=== PATIENT | female | born 1970 | race Caucasian/White ===

== ENCOUNTER 2019-10-04 09:50 | Outpatient (CLI) | payer BC, SELFPAY ==
--- NOTE | 2019-10-04 10:00 | MM_ITS ---
WS: [id number] BILATERAL SCREENING DIGITAL MAMMOGRAM WITH CAD HISTORY: screening COMPARISON: 04/20/2007 Bilateral CC and MLO views submitted. Computer aided detection analyzed. Breast composition: There are scattered areas of fibroglandular density. No suspicious masses, microc alcifications or architectural distortion. Benign calcifications upper outer quadrant LEFT breast. MM/[place] [id number] IMPRESSION: BI-RADS: 2-Benign FOLLOW UP: 1 Year Follow-up
== END 2019-10-04 09:51 | disposition home or self-care (01) ==
LOC: RADSHAW 09:53
PROVIDERS: Family Provider Family Medicine; PCP Nurse Practitioner Family; Visit Provider Nurse Practitioner Women's Health
DX: Z12.31 Encounter for screening mammogram for malignant neoplasm of breast (principal)
CPT/HCPCS: 77067

== ENCOUNTER → 2020-06-24 15:44 | Outpatient (BNVA) | payer BC, SELFPAY | PROVIDERS: Family Provider Family Medicine; PCP Nurse Practitioner Family; Referring Provider Family Medicine; Visit Provider Podiatrist Foot & Ankle Surgery | DX: G57.92 Unspecified mononeuropathy of left lower limb (principal) | CPT/HCPCS: 73630 ==

== ENCOUNTER 2020-07-01 07:54 | Outpatient (CLI) | payer BC, SELFPAY ==
--- NOTE | 2020-07-01 08:09 | CT_ITS ---
WS: [id number] CT NECK TECHNIQUE: Contrast-enhanced CT of the neck with coronal and sagittal reformatted images. CLINICAL INFORMATION: DYSPHAGIA COMPARISON: None. DLP: 2588.[address] scans at [facility] use at least one of these dose optimization techniques: automat ed exposure control; mA and/or kV adjustment per patient size (includes targeted exams where dose is matched to clinical indication); or iterative reconstruction. FINDINGS: Parotid glands are normal. Submandibular glands are normal. Tongue base is normal. Normal parapharyng eal fat. No evidence of supraglottic or glottic mass. Normal vallecula and piriform sinuses. Subglott ic airway is normal. Heterogeneous thyroid gland with small bilateral thyroid nodules. Lung apices are well aerated. Mastoid air cells are well aerated. Partial opacification left maxillar y sinus appears chronic. Partially visualized intracranial contents unremarkable. A few prominent cer vical lymph nodes more prominent in the posterior triangle and lower neck nonspecific but likely reac tive. Mild spondylitic changes. Disc space narrowing worse at C6-7. CT/CT neck w con* [id number] IMPRESSION: 1. No evidence of supraglottic or glottic mass. Normal tongue base and parapha ryngeal fat 2. Normal salivary glands. 3. A few prominent cervical lymph nodes nonspecific but likely reactive. 4. Heterogeneous thyroid with small nodules. This can be further evaluated wit h ultrasound. 5. Chronic appearing opacification left maxillary sinus.
--- NOTE | 2020-07-01 08:09 | FL_ITS ---
WS: [id number] ESOPHAGRAM TECHNIQUE: Double contrast examination was performed with thin and thick barium. Upright and MCCORMICK imag es were obtained. Fluoroscopy time 3.2 minutes CLINICAL INFORMATION: DYSPHAGIA COMPARISON: None. FINDINGS: Swallowing: No evidence of aspiration penetration. Esophagus: Moderate esophageal dysmotility with delayed emptying. No evidence of high-grade stricture or obstructing mass. Gastroesophageal reflux: Mild reflux visualized in the supine position to the midesophagus. Small eso phageal hiatal hernia. No difficulties with barium tablet. Mild/moderate spondylitic changes cervical spine Fluoroscopy time: 3.2 minutes. FL/OK barium swallow [id number] IMPRESSION: 1. Moderate esophageal dysmotility with delayed emptying. No evidence of high- grade stricture or obstructing mass. 2. Small esophageal hiatal hernia. Mild reflux to the midesophagus in the supi ne imaging. 3. No evidence of aspiration or penetration. 4. No difficulties with barium tablet.
[2020-07-01] MEDS: iohexol 300 mg/mL 100 mL Btl IV (08:34)
== END 2020-07-01 07:55 | disposition home or self-care (01) ==
LOC: RADWPI 07:57
PROVIDERS: PCP Family Medicine; Visit Provider Specialist
DX: R13.10 Dysphagia, unspecified (principal); E04.2 Nontoxic multinodular goiter
CPT/HCPCS: 70491; 74220; Q9967

== ENCOUNTER 2020-07-28 10:16 | Outpatient (CLI) | payer BC, SELFPAY ==
--- NOTE | 2020-07-28 10:30 | FL_ITS ---
WS: [id number] MODIFIED BARIUM SWALLOW HISTORY: Other dysphagia FLUOROSCOPY TIME: 1.3 minutes. Modified barium swallow was performed by the speech pathologist. Fluoroscopy was provided with the pa tient in a lateral projection. Multiple food consistencies were provided. Patient swallowed all food consistencies without difficulty. No aspiration or laryngeal penetration. Patient swallowed the barium tablet with no difficulty. FL/FL barium swallow modifd [id number] IMPRESSION: Normal modified swallowing evaluation. Please see speech therapist report also for recommendations.
--- NOTE | 2020-07-28 11:55 | ECG_ITS ---
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1970 Requested By: Kodi Butler Order Number: [id number] Aries MD: FATOUMATA VEGA Measurements Intervals [place] Rate: 76 P: 42 HI: 158 QRS: -3 QRSD: 91 T: 30 QT: 368 QTc: 414 Interpretive Statements SINUS RHYTHM POSSIBLE ANTERIOR MYOCARDIAL INFARCTION [30 ms Q WAVE IN V3/V4, OR R < 0.2 mV IN V4], OF INDETERMINATE AGE No previous ECG available for comparison Electronically Signed On 07-28-2020 20:00:55 BEAN ROASTER by FATOUMATA VEGA [id number]
[2020-07-28 11:56] LABS: Anion Gap 13.2 (5-19); Blood Urea Nitrogen 11 mg/dL (6-20); Calcium 9.4 mg/dL (8.5-10.5); Carbon Dioxide 28 mmol/L (22-29); Chloride 98 mmol/L (98-107); Glomerular Filtration Rate 106.7 mL/min (90-130); Glucose 84 mg/dL (65-115); Osmolality Calculated 279 mOsm/kg (285-295); Potassium 4.2 mmol/L (3.5-5.1); Sodium 135 mmol/L (136-145)
[2020-07-28 13:27] LABS: Basophils % 0.5 %; Eosinophils # 0.1 10^3/uL (0.0-0.8); Eosinophils % 1.3 %; Hematocrit 39.7 % (37.0-47.0); Hemoglobin 12.8 g/dL (11.5-15.3); Lymphocytes # 2.5 10^3/uL (0.8-4.8); Mean Corpuscular HGB Conc 32.2 g/dL (30.0-36.0); Mean Corpuscular Hemoglobin 28.1 pg (28.0-34.0); Mean Corpuscular Volume 87.3 fL (81-99); Mean Platelet Volume 10.3 fL (7.4-10.4); Monocytes # 0.5 10^3/uL (0.2-0.9); Monocytes % 6.1 %; Neutrophils # 4.97 10^3/uL (1.8-7.7); Nucleated Red Blood Cells % 0 %; Platelet Count 277 10^3/cmm (130-400); Red Blood Count 4.55 10^6/uL (4.1-5.3); Red Cell Distribution Width 12.9 % (12.1-15.1); White Blood Count 8.2 10^3/uL (4.0-10.0)
== END 2020-07-28 10:17 | disposition home or self-care (01) ==
LOC: RAD 10:24
PROVIDERS: PCP Family Medicine; Visit Provider Specialist
DX: R13.19 Other dysphagia (principal); R00.0 Tachycardia, unspecified; J37.0 Chronic laryngitis
CPT/HCPCS: 74230; 80048; 85025; 92611; 93005

== ENCOUNTER → 2020-09-22 15:02 | Outpatient (BNVA) | payer BC, SELFPAY | PROVIDERS: PCP Family Medicine; Visit Provider Nurse Practitioner Women's Health | DX: Z12.39 Encounter for other screening for malignant neoplasm of breast (principal); Z01.419 Encounter for gynecological examination (general) (routine) without abnormal findings | CPT/HCPCS: 88175 ==

== ENCOUNTER → 2021-10-05 10:23 | Outpatient (BNVA) | payer BC, SELFPAY | PROVIDERS: PCP Family Medicine; Visit Provider Nurse Practitioner Women's Health | DX: N93.9 Abnormal uterine and vaginal bleeding, unspecified (principal) | CPT/HCPCS: 84443; 85025 ==

== ENCOUNTER → 2022-08-24 11:27 | Outpatient (BNVA) | payer BC, SELFPAY | PROVIDERS: PCP Family Medicine; Visit Provider Nurse Practitioner Family | DX: J03.00 Acute streptococcal tonsillitis, unspecified (principal) | CPT/HCPCS: 87880 ==

== ENCOUNTER 2022-12-06 13:05 | Observation (INO) | payer OTHER, SELFPAY ==
[2022-12-02 10:12] VITALS: BMI 31.2
[2022-12-02 10:43] LABS: Basophils # 0.1 10^3/uL (0.0-0.1); Basophils % 0.6 %; Eosinophils # 0.1 10^3/uL (0.0-0.8); Eosinophils % 1.4 %; Hematocrit 44.4 % (37.0-47.0); Hemoglobin 14.7 g/dL (11.5-15.3); Lymphocytes % 37.7 %; Mean Corpuscular HGB Conc 33.1 g/dL (30.0-36.0); Mean Corpuscular Hemoglobin 27.9 pg (28.0-34.0); Mean Corpuscular Volume 84.4 fl (81-99); Mean Platelet Volume 9.5 fL (7.4-10.4); Monocytes # 0.5 10^3/uL (0.2-0.9); Monocytes % 6.4 %; Neutrophils # 4.19 10^3/uL (1.8-7.7); Neutrophils % 53.6 %; Nucleated Red Blood Cells % 0 %; Platelet Count 281 10^3/cmm (130-400); Red Blood Count 5.26 10^6/uL (4.1-5.3); Red Cell Distribution Width 12.5 % (12.1-15.1); White Blood Count 7.8 10^3/uL (4.0-10.0)
[2022-12-02 10:59] LABS: Anion Gap 15.1 (5-19); Blood Urea Nitrogen 12 mg/dL (6-20); Calcium 8.7 mg/dL (8.5-10.5); Carbon Dioxide 25 mmol/L (22-29); Chloride 103 mmol/L (98-107); Glomerular Filtration Rate 105.8 mL/min (90-130); Glucose 81 mg/dL (65-115); Osmolality Calculated 287 mOsm/kg (285-295); Potassium 4.1 mmol/L (3.5-5.1); Sodium 139 mmol/L (136-145)
--- NOTE | 2022-12-02 14:44 | ANES.PREANE2 ---
Pre-Anesthetic Assessment Height/Weight: Height 1.65 m Weight 85.275 kg Preop Diagnosis: AUB Operation Date: 12/06/22 12:10 Proposed Procedures p Laparoscopic assisted vaginal hysterectomy, bilateral salpingo-oophorectomy 85495,N93.9(Not Applicable) - Syl Alcocer MD s Laparoscopic Salpingo Oophorectomy(Bilateral) - Syl Alcocer MD Familial anesthetic complications: none Was Beta Johnnie taken within 24 hours: Yes Was Clonidine taken within 24 hours: N/A Social No alcohol and No tobacco Exam alert, oriented x 3, clear to auscultation bilaterally and regular rate & rhythm Airway Submandibular: within normal limits Cervical ROM: within normal limits Mallampati: Class II Dentition: full CV/HEM [place] [facility] [place] Fibromyalgia Anesthetic Plan ASA status: 2 Anesthesia: General Medications/Allergies Home Medications Medication Instructions Recorded Confirmed Last Taken Type Saccharomyces boulardii 250 mg 250 mg PO QDAY 08/21/19 12/02/22 12/02/22 History capsule (Daily Probiotic (S. boulardii)) metoprolol succinate 50 mg 50 mg PO BID 08/25/20 12/02/22 12/02/22 History tablet,extended release 24 hr zinc 50 mg tablet 50 mg PO DAILY 10/05/21 12/02/22 12/02/22 History norethindrone acetate 5 mg tablet 5 mg PO DAILY #30 tabs 08/04/22 12/02/22 12/02/22 Rx pregabalin 25 mg capsule (Lyrica) 25 mg PO DAILY #30 caps 08/24/22 12/02/22 12/02/22 Rx cyclobenzaprine 10 mg tablet 5 mg PO BEDTIME 12/02/22 12/02/22 12/01/22 History escitalopram oxalate 20 mg tablet 20 mg PO DAILY 12/02/22 12/02/22 12/01/22 History Allergies Allergy/AdvReac Type Severity Reaction Status Date / Time No Known Allergies Allergy Verified 12/02/22 10:07 [facility] Anesthesia Medical History Fibromyalgia syndrome Diagnosed in 2018 managed by primary care provider Hypertension Diagnosed in 2018. This is managed by her primary care provider and cardiology Dr. Luciano No pertinent past medical history Denies diabetes, asthma, seizures, DVT/PE PCP: Dr. Fairchild Surgical History History of appendectomy (~2004) Open procedure-right lower quadrant incision History of tubal ligation (~2001) Laparoscopic procedure Family History Mother Diabetes Hypertension Thyroid disease Grandmother Ovarian cancer Maternal; diagnosed in her 50s Sister Cervical cancer dx age 15 Denies family history of Colon cancer Heart disease Hypercholesteremia Breast cancer Uterine cancer Stroke Social History Substance/Drug Use: never Data Anesthesia 12/02/22 10:30 12/02/22 10:30 Short CBC 12/02/22 Range/Units 10:30 WBC 7.8 (4.0-10.0) 10^3/uL Hgb 14.7 (11.5-15.3) g/dL Hct 44.4 (37.0-47.0) % MCV 84.4 (81-99) fl Plt Count 281 (130-400) 10^3/cmm Neut % (Auto) 53.6 % Neut # (Auto) 4.19 (1.8-7.7) 10^3/uL BMP 12/02/22 10:30 Sodium 139 Potassium 4.1 Chloride 103 Carbon Dioxide 25 BUN 12 Creatinine 0.6 Glucose 81 Calcium 8.7 Cardiac Studies: No Data to Display
[2022-12-06] VITALS (21 sets, daily range): BP systolic 131–203; BP diastolic 78–113; PULSE 69–106; RESP 12–18; TEMP 36.4–37.2; O2SAT 91–99
[2022-12-06] MEDS: sodium chloride 0.9% 1,000 ML 30 ML IV (09:17)
[2022-12-06] MEDS: acetaminophen 1,000 MG/100 ML PIGGYBACK 400 MG IV (09:20)
[2022-12-06] MEDS: CELEcoxib 200 mg Capsule 400 MG PO (09:21)
[2022-12-06] MEDS: scopolamine 1.5 Patch 1 PATCH TRANSDERMA (09:21)
[2022-12-06] MEDS: phenazopyridine 100 mg Tablet 200 MG PO ×3 (09:21→21:27)
[2022-12-06] MEDS: gabapentin 300 mg Capsule PO (09:21)
[2022-12-06 09:31] LABS: OR HCG Qualitative Urine Negative (Negative)
--- NOTE | 2022-12-06 09:44 | W.PM.OPSUD ---
Surgery/Procedure H&P Update DATE OF PROCEDURE: December 06, 2022 DATE H&P PERFORMED: 12/02/22 H&P UPDATE INFORMATION: I have reviewed H&P completed within last 30 days, I have examined patient prior to procedure and No changes to prior documentation PREOP DIAGNOSIS: AUB PLANNED PROCEDURE: Operation Date: 12/06/22 10:15 Proposed Procedures p Laparoscopic assisted vaginal hysterectomy, bilateral salpingo-oophorectomy 85077,N93.9(Not Applicable) - Syl Alcocer MD s Laparoscopic Salpingo Oophorectomy(Bilateral) - Syl Alcocer MD Related Problem List Diagnoses (1) Abnormal uterine bleeding:
--- NOTE | 2022-12-06 10:00 | P.ANESUD_ITS ---
Pre-Anesthetic Update Pre-Anesthetic Assessment: Date of Surgery/Procedure: 12/06/22 Preop Nina gnosis: AUB Proposed Procedure: Operation Date: 12/06/22 10:15 Proposed Procedures p Laparoscopic assisted vaginal hysterectomy, bilateral salpingo-oophorectomy 65778,N93.9(Not Applicable) - Syl Alcocer MD s Laparoscopic Salpingo Oophorectomy(Bilateral) - Syl Alcocer MD Any changes to Pre-Anesthetic Assessment?: No Last Intake: Intake Last Liquid Date 12/05/22 Last Liquid Time 20:00 Last Solid Date 12/05/22 Last Solid Time 20:00 Vitals: Temperature 97.9 F 12/06/22 09:00 Pulse Rate 69 12/06/22 09:00 Respiratory Rate 16 12/06/22 09:00 Blood Pressure 194/103 12/06/22 09:00 Blood Pressure Viri n 133 12/06/22 09:00 Pulse Oximetry 97 12/06/22 09:00 Oxygen Delivery Me thod Room Air 12/06/22 09:08 Exam: Pre-Anes Outpt Exam: alert, oriented x 3, clear to auscultation bilaterally and regular rate & rhythm Cardiac Studies: No Data to Display
[2022-12-06] MEDS: ceFAZolin 2,000 MG in sodium chloride 0.9% (plus) 50 ML 100 MG IV ×2 (10:17→18:28)
[2022-12-06] MEDS: vasopressin 20 unit/mL INJ INJECTION (11:50)
--- NOTE | 2022-12-06 12:26 | PM.OP ---
Operative Report Date of procedure: December 06, 2022 Pre-op diagnosis: Preop Diagnosis AUB Post-op diagnosis: same Post-op findings: Normal appearing uterus, tubes and ovaries Procedure done: LAVH, BSO Specimens removed/disposition: uterus and bilateral fallopian tube segment and ovaries to pathology Surgeon: Syl Alcocer Anesthesia: General Estimated blood loss (mL): 50 IV fluids (mL): 900 Urine output (mL): 150 Complications: none Condition: stable Disposition: PACU Procedure: The patient was taken to the operating room where general anesthesia was administered and found to be adequate. She was prepped and draped in the normal sterile fashion in the dorsal lithotomy position in [facility]. A Carson catheter was placed. A weighted speculum was placed into the vagina and the anterior lip of the cervix was grasped with a single tooth tenaculum. The Zumi uterine manipulator was placed. The weighted speculum was removed. The gloves were changed and attention was turned to the abdomen. A 5 mm supraumbilical incision was made. Using a 5 mm port with the camera, the port was placed into the abdomen. The abdomen was insufflated. Two low, lateral 5 mm ports were placed on the left and right under direct visualization from the camera. There was a large adhesion complex of bowel and omentum to the right side. I attempted to take the omentum down and got much of it down, but there was bowel behind some of it and the remainder of the adhesion was left in place. The right tube was grasped and elevated. Using the laparoscopic cautery, the IP ligament was cauterized and cut below the ovary, freeing the tube and ovary from the pelvic sidewall. This was performed the same way on the left. The round ligaments were then ligated. Attention was then turned to the vaginal portion of the procedure. The weighted speculum was placed into the vagina. The zumi manipulator was removed. The single tooth tenaculum was removed and replaced with the demario's tenaculum. 10 mL of dilute Pitressin was injected at the vesicovaginal junction. A circumferential incision was made at the vesicovaginal junction and the vaginal mucosa reflected cephalad. The posterior peritoneum was entered sharply with the Metzenbaum scissors and the long weighted speculum replaced. Using the Viral clamps the uterosacral ligaments were clamped cut and suture-ligated. The anterior peritoneum was entered sharply with the metzenbaum scissors. Then sequentially the uterine arteries and cardinal ligaments were clamped cut and suture-ligated. A single-tooth tenaculum was used to deliver the uterus. The remaining segement of the utero-ovarian ligaments were clamped cut and suture-ligated bilaterally and the specimen was removed. There was good hemostasis with only mild bleeding from the cuff. The peritoneum was closed with a pursestring using 2-0 Vicryl. The vaginal cuff was closed with 0 Vicryl in a running locked pattern incorporating the uterosacral ligaments into the lateral aspects of the vaginal cuff. The Carson catheter was removed and the cystoscope advanced into the bladder. The patient was given pyridium and bilateral spill was noted. There were no injuries or deficits noted in the bladder. The cystoscope was removed and the Carson was replaced. Vaginal packing was placed for good hemostasis. The gloves and gowns were changed and attention was turned to the abdomen. The ports were closed with 2-0 monocryl with skin glue. The patient tolerated the procedure well. Sponge lap and needle counts were correct x3. She was taken to the recovery room in stable condition.
--- NOTE | 2022-12-06 12:37 | PC.NURSE ---
Pt arrived to PACU, oral airway in place, O2 at 6L/min via simple mask. Dermabond to abdomen C/D/I, vaginal packing and peripad in place-no drainage noted. Carson catheter patent and draining. Bilateral SCD's in place and running.
--- NOTE | 2022-12-06 12:43 | PC.NURSE ---
pt awake, oral airway removed, pt tolerated well.
[2022-12-06] MEDS: fentaNYL 50 mcg/mL INJ 2mL IVP (12:49)
[2022-12-06] MEDS: ketorolac 30 mg/mL INJ IVP ×2 (12:55→18:28)
[2022-12-06] MEDS: hyDRALAzine 20 mg/mL INJ 1 mL 10 MG IVP (13:06)
--- NOTE | 2022-12-06 13:06 | PC.NURSE ---
Blood pressures elevated, new orders received, will administer and continue to monitor.
[2022-12-06] MEDS: ondansetron 2 mg/ML SDV 2 mL 4 MG IVP ×2 (14:08→18:28)
[2022-12-06] MEDS: dextrose 5%-lactated ringers 1,000 ML 125 ML IV ×2 (14:08→21:27)
[2022-12-06] MEDS: diphenhydrAMINE 50 mg/mL SDV 1mL 12.5 MG IVP ×2 (14:40→19:47)
[2022-12-06] MEDS: metoprolol succinate ER (24 HR) 50 mg Tablet PO (15:03)
--- NOTE | 2022-12-06 15:14 | ANE.PACU2 ---
Inpatient post-anesthesia follow up: Airway intact: Yes Vital signs: Temperature 98.4 F Pulse Rate 84 Respiratory Rate 12 Blood Pressure 160/105 Pulse Oximetry 92 Oxygen Delivery Me thod Room Air Oxygen Flow Rate 6 Fraction of Inspir ed Oxygen Hydration adequate: Yes Nausea and vomiting: No Pain level: 1 Mental status: Baseline
[2022-12-06] MEDS: HYDROcodone-acetaminophen 5-325 mg Tablet PO (16:25)
[2022-12-06] MEDS: hyDRALAzine 20 mg/mL INJ 1 mL IVP (18:28)
--- NOTE | 2022-12-06 20:45 | PC.NURSE ---
Patient up to chair and began vomiting profusely. Patient also noted to have bright red vaginal bleeding at this time. Patient states she would like to sit up in chair for a little bit at this time. Call light given and patient's support person at bedside.
[2022-12-06] MEDS: promethazine 25 mg/mL SDV 1 mL IM (21:26)
[2022-12-06] MEDS: cyclobenzaprine 10 mg Tablet 5 MG PO (21:27)
[2022-12-07 01:11] VITALS: BP 129/73; PULSE 89; RESP 15; TEMP 36.8; O2SAT 96
[2022-12-07] MEDS: ketorolac 30 mg/mL INJ IVP (02:36)
[2022-12-07] MEDS: ceFAZolin 2,000 MG in sodium chloride 0.9% (plus) 50 ML 100 MG IV (02:37)
[2022-12-07 04:00] VITALS: BP 148/79; PULSE 84; RESP 15; TEMP 36.8; O2SAT 96
[2022-12-07 05:26] LABS: Hemoglobin 12.5 g/dL (11.5-15.3); Mean Corpuscular HGB Conc 32.9 g/dL (30.0-36.0); Mean Corpuscular Hemoglobin 27.9 pg (28.0-34.0); Mean Corpuscular Volume 84.8 fl (81-99); Mean Platelet Volume 9.7 fL (7.4-10.4); Platelet Count 279 10^3/cmm (130-400); Red Blood Count 4.48 10^6/uL (4.1-5.3); Red Cell Distribution Width 12.6 % (12.1-15.1); White Blood Count 13.1 10^3/uL (4.0-10.0)
[2022-12-07] MEDS: HYDROcodone-acetaminophen 5-325 mg Tablet PO ×2 (07:26→11:26)
[2022-12-07] MEDS: docusate sodium 100 mg Capsule PO (08:40)
[2022-12-07] MEDS: metoprolol succinate ER (24 HR) 50 mg Tablet PO (08:41)
[2022-12-07] MEDS: pregabalin 25 mg Capsule PO (08:41)
[2022-12-07] MEDS: escitalopram 10 mg Tablet 20 MG PO (08:41)
[2022-12-07] MEDS: phenazopyridine 100 mg Tablet 200 MG PO (08:41)
[2022-12-07 08:52] VITALS: BP 150/78; PULSE 80; RESP 14; O2SAT 98
--- NOTE | 2022-12-07 10:56 | P.DS_ITS ---
Discharge Providers Date of Admission: 12/06/22 13:05 Date of Discharge: December 07, 2022 Attending Provider at Admission: Syl Alcocer MD Attending Provider at Discharge: Syl Alcocer MD Primary Care Provider: Dominick Fairchild MD Diagnoses at Discharge Discharge Diagnosis (1) Abnormal uterine bleeding: Status: Acute Permanent problem details: 09/21/2017: TSH, CBC, Pap smear, pelvic ultrasound and endometrial biopsy have all returned normal and negative for hyperplasia or atypia---> started on Sprintec Reason for Visit Reason for Visit: 66920 N93.9 Hospital Course Hospital Course The patient was admitted for surgery. She had extremely high blood pressures postoperatively. After medication was used to lower her blood pressures, she had nausea and severe vomiting. She then started having increased vaginal bleeding. She had packing in place. In the morning, the packing was removed. She showered and ambulated and there was scant bleeding. Her blood pressures were again normal. She was ready for discharge. Physical Exam Narrative: The patient is doing well. No concerns. She is ambulating, tolerating a regular diet Her pain is well controlled. Her catheter and packing have been removed. Const: COMMON NORMALS: no acute distress, patient oriented x3, no limitations, healthy appearing, alert and well nourished GENERAL APPEARANCE: cooperative, comfortable, well kempt, well developed and in distress ORIENTATION/CONSCIOUSNESS: Yes awake, Yes oriented to person, Yes oriented to place and Yes oriented to time Resp: COMMON NORMALS: normal respiratory effort EFFORT & INSPECTION: Yes able to speak in complete sentences GI: COMMON NORMALS: Soft to palpation and non-tender PALPATION: Yes Soft to palpation Extremity: COMMON NORMALS: no calf tenderness Neuro: COMMON NORMALS: patient oriented x3 SENSORIUM/ORIENTATION: Yes alert, Yes oriented to person, Yes oriented to place and Yes oriented to time Psych: APPEARANCE: Yes well kempt Urinary Catheter Management: Carson: Cath Placed During This Visit: yes, but has since been removed by the nurse Reason for Continuing Indwelling Catheter: Decision to DC Catheter Urinary Catheter Date of Insertion: 12/06/22 Urinary Catheter Time of Insertion: 11:00 Date Urinary Catheter Removed: 12/07/22 Time Urinary Catheter Discontinued: 08:40 Discharge Data Studies Completed and Pending Pending at discharge Category Date Time Status Urine Culture Routine Lab 12/06/22 10:52 Results Pathology: Surgical [PTH] Routine Pth 12/06/22 12:00 Received Laboratory Results WBC 13.1 10^3/uL (4.0-10.0) H 12/07/22 05:14 RBC 4.48 10^6/uL (4.1-5.3) 12/07/22 05:14 Hgb 12.5 g/dL (11.5-15.3) 12/07/22 05:14 Hct 38.0 % (37.0-47.0) 12/07/22 05:14 MCV 84.8 fl (81-99) 12/07/22 05:14 MCH 27.9 pg (28.0-34.0) L 12/07/22 05:14 MCHC 32.9 g/dL (30.0-36.0) 12/07/22 05:14 RDW 12.6 % (12.1-15.1) 12/07/22 05:14 Plt Count 279 10^3/cmm (130-400) 12/07/22 05:14 MPV 9.7 fL (7.4-10.4) 12/07/22 05:14 Neut % (Auto) 53.6 % 12/02/22 10:30 Lymph % (Auto) 37.7 % 12/02/22 10:30 [place] % (Auto) 6.4 % 12/02/22 10:30 Eos % (Auto) 1.4 % 12/02/22 10:30 Baso % (Auto) 0.6 % 12/02/22 10:30 Neut # (Auto) 4.19 10^3/uL (1.8-7.7) 12/02/22 10:30 Lymph # (Auto) 3.0 10^3/uL (0.8-4.8) 12/02/22 10:30 [place] # (Auto) 0.5 10^3/uL (0.2-0.9) 12/02/22 10:30 Eos # (Auto) 0.1 10^3/uL (0.0-0.8) 12/02/22 10:30 Baso # (Auto) 0.1 10^3/uL (0.0-0.1) 12/02/22 10:30 Nucleated RBC % (auto) 0 % 12/02/22 10:30 Nucleated RBCs # 0.0 /100WBC 12/02/22 10:30 Sodium 139 mmol/L (136-145) 12/02/22 10:30 Potassium 4.1 mmol/L (3.5-5.1) 12/02/22 10:30 Chloride 103 mmol/L (98-107) 12/02/22 10:30 Carbon Dioxide 25 mmol/L (22-29) 12/02/22 10:30 Anion Gap 15.1 (5-19) 12/02/22 10:30 BUN 12 mg/dL (6-20) 12/02/22 10:30 Creatinine 0.6 mg/dL (0.5-0.9) 12/02/22 10:30 GFR Calculation 105.8 mL/min (90-130) 12/02/22 10:30 Glucose 81 mg/dL (65-115) 12/02/22 10:30 Calculated Osmolality 287 mOsm/kg (285-295) 12/02/22 10:30 Calcium 8.7 mg/dL (8.5-10.5) 12/02/22 10:30 Urine HCG, Qual Negative (Negative) 12/06/22 08:56 Blood Type O Positive 12/06/22 09:22 Rho(D) Type Positive 12/06/22 09:22 Antibody Screen Negative 12/06/22 09:22 Vitals Last Vital Signs Temp 98.2 F 12/07/22 04:00 Pulse 80 12/07/22 08:52 Resp 14 12/07/22 08:52 BP 150/78 12/07/22 08:52 Pulse Ox 98 12/07/22 08:52 O2 Del Method Room Air 12/07/22 08:52 O2 Flow Rate 6 12/06/22 12:39 Discharge Plan Discharge Patient Disposition: Home Condition: Stable Prescriptions: New ibuprofen 800 mg Tablet 800 mg PO Q8H Qty: 30 0RF hydrocodone-acetaminophen 5-325 mg Tablet 1 tab PO Q4H PRN (Reason: Moderate To Severe Pain) Qty: 30 0RF docusate sodium 100 mg Capsule 100 mg PO BID Qty: 60 0RF Continued Daily Probiotic (S. boulardii) 250 mg capsule 250 mg PO QDAY zinc 50 mg tablet 50 mg PO DAILY metoprolol succinate 50 mg tablet extended release 24 hr 50 mg PO BID pregabalin [Lyrica] 25 mg capsule 25 mg PO DAILY Qty: 30 5RF cyclobenzaprine 10 mg tablet 5 mg PO BEDTIME escitalopram oxalate 20 mg tablet 20 mg PO DAILY Discontinued norethindrone acetate 5 mg tablet 5 mg PO DAILY Qty: 30 0RF Discharge Orders: Discharge Order (Routine); Ordered 12/07/22 Ordered By: Syl Alcocer Referrals: Syl Aclocer MD [Physician] - 12/12/22 2:00 pm (1 week post-op: 12/12/22 @2:00 6 week post-op: 01/16/23 @10:30) Patient Instructions: Salpingo-Oophorectomy (DC), Laparoscopic Hysterectomy (DC), Cystoscopy (DC), OB Discharge Report, OB Food/Drug Interaction Guide, Opioid Safety Discharge Attestations Time Spent in Discharge Care*: less than 30 min Quality Metrics Clinical Quality Measures [ No reported AMI, CVA or VTE this stay] Coding Level of Care Code Acute Code for Chg Fwd Diagnoses Abnormal uterine bleeding N93.9
[2022-12-07 11:30] VITALS: BP 150/87; PULSE 58; O2SAT 99
[2022-12-07 13:02] VITALS: BP 150/83; PULSE 84; RESP 14
== END 2022-12-07 13:08 | disposition home or self-care (01) ==
LOC: OBGYN 13:05
PROVIDERS: Anesthesiology; Admitting Provider Obstetrics & Gynecology; PCP Family Medicine; Visit Provider Obstetrics & Gynecology
PROC: 0UT9FZZ Resection of Uterus, Via Natural or Artificial Opening With Percutaneous Endoscopic Assistance (ICD-10-PCS; CPT 58552; principal; 2022-12-06 10:05)
PROC: (CPT 58661; 2022-12-06 10:05)
PROC: 0TJB8ZZ Inspection of Bladder, Via Natural or Artificial Opening Endoscopic (ICD-10-PCS; CPT 52000; 2022-12-06 10:05)
DX: N93.9 Abnormal uterine and vaginal bleeding, unspecified (principal); I10 Essential (primary) hypertension; M79.7 Fibromyalgia
CPT/HCPCS: 58552; 36415; 80048; 84703; 85025; 85027; 86850; 86900; 87086; 88307; 96372; G0378; J0131; J0360; J0690; J1100; J1200; J1885; J2250; J2405; J2550; J2704; J3010; J3490; J7030; J7121

== ENCOUNTER → 2024-01-19 11:52 | Outpatient (BNVA) | payer OTHER, SELFPAY | PROVIDERS: PCP Family Medicine; Visit Provider Nurse Practitioner Women's Health | DX: N89.8 Other specified noninflammatory disorders of vagina (principal) | CPT/HCPCS: 88305 ==

== ENCOUNTER 2024-05-26 15:02 | Emergency (ER) | payer OTHER, SELFPAY ==
[2024-05-26 15:06] VITALS: BP 188/100; PULSE 81; RESP 19; TEMP 36.6; O2SAT 100; BMI 31.6
--- NOTE | 2024-05-26 15:29 | XRR_ITS ---
PROCEDURE INFORMATION: Exam: XR Left Ankle Exam date and time: 05/26/2024 3:57 PM Age: 53 years old Clinical indication: Injury or trauma; Fall; Blunt trauma; Ankle; Left TECHNIQUE: Imaging protocol: Radiologic exam of the left ankle. Views: 3 or more views. COMPARISON: CR XR tibia fibula LT 2V [id number] 05/26/2024 3:57 PM FINDINGS: Bones/joints: Normal osseous alignment at the ankle mortise. Normal joint space. Along the inferior margin of the lateral malleolus there is a small curvilinear 2 mm calcific density. This is nonspecific. No aggressive osseous lesion. Plantar calcaneal spur. Achilles enthesophyte. Soft tissues: Normal. XR/XR ankle LT min 3V* [id number] IMPRESSION: 1. Nonspecific 2 mm calcific density along the inferior aspect of the lateral malleolus. If clinical symptoms directly correlate this could represent a small avulsion fracture fragment. Alternatively this may represent an incidental chronic finding.
--- NOTE | 2024-05-26 15:29 | XRR_ITS ---
PROCEDURE INFORMATION: Exam: XR Left Tibia and Fibula Exam date and time: 05/26/2024 3:57 PM Age: 53 years old Clinical indication: Injury or trauma; Fall; Blunt trauma; Lower leg; Left TECHNIQUE: Imaging protocol: Radiologic exam of the left tibia and fibula. Views: 2 views. COMPARISON: CR XR ankle LT min 3V* [id number] 05/26/2024 3:57 PM FINDINGS: Bones/joints: There is cortical discontinuity along the articular surface of the lateral tibial plateau concerning for a tibial plateau fracture. There is marginal osseous spurring suggesting changes of osteoarthritis in the tibiofemoral compartments and patellofemoral compartment. Distal tibia appears intact. Fibula appears intact. Normal alignment joint space at the ankle. Plantar calcaneal spur incidentally noted. Achilles enthesopathy noted. There is a joint effusion at the knee. Soft tissues: Normal. XR/XR tibia fibula LT 2V [id number] IMPRESSION: 1. Findings concerning for a nondisplaced fracture of the medial tibial plateau. 2. Changes of tricompartmental osteoarthritis at the knee. Joint effusion at the knee. 3. Incidental calcaneal plantar spur and Achilles enthesophyte.
--- NOTE | 2024-05-26 15:29 | XRR_ITS ---
PROCEDURE INFORMATION: Exam: XR Left Knee Exam date and time: 05/26/2024 3:57 PM Age: 53 years old Clinical indication: Injury or trauma; Fall; Blunt trauma; Knee; Left TECHNIQUE: Imaging protocol: Radiologic exam of the left knee. Views: 3 views. COMPARISON: CR XR ankle LT min 3V* [id number] 05/26/2024 3:57 PM FINDINGS: Bones/joints: There is cortical irregularity along the articular surface of the lateral tibial plateau and extending distally along the lateral metaphysis consistent with a minimally depressed lateral tibial plateau fracture. There is approximately 3 mm of greatest cortical step-off. Small joint effusion in the suprapatellar recess. Marginal spurring suggesting tricompartmental osteoarthritis. No aggressive osseous lesion. Soft tissues: Normal. XR/XR knee LT 3V* [id number] IMPRESSION: 1. Findings suggest a minimally depressed fracture through the lateral tibial plateau. 2. Changes of tricompartmental osteoarthritis and small joint effusion.
--- NOTE | 2024-05-26 17:17 | CTR_ITS ---
PROCEDURE INFORMATION: Exam: CT Left Lower Extremity, Knee Exam date and time: 05/26/2024 6:34 PM Age: 53 years old Clinical indication: Injury or trauma; Fall; Blunt trauma; Knee; Left; Additional info: Tibial plateau fracture TECHNIQUE: Imaging protocol: CT of the left lower extremity without contrast was performed. Exam focused on the knee. Radiation optimization: All CT scans at this facility use at least one of these dose optimization techniques: automated exposure control; mA and/or kV adjustment per patient size (includes targeted exams where dose is matched to clinical indication); or iterative reconstruction. COMPARISON: CR XR knee LT 3V* [id number] 05/26/2024 3:57 PM RADIATION DOSE METRICS: Total DLP (mGy-cm): 349.15 FINDINGS: Bones/joints: CT confirms a comminuted fracture of the lateral tibial plateau involving the articular surface with approximately 4 mm displacement along the articular surface and along the metaphysis the tibial plateau distally the medial tibial spine also has underlying lucency raising question of possible tibial spine fracture. Femur appears intact. Patella appears intact. Visualized proximal fibula appears intact. Moderate joint effusion. Marginal osseous spurring in all 3 compartments consistent with tricompartmental osteoarthritis. Soft tissues: Normal. CT/CT knee LT wo con* [id number] IMPRESSION: 1. CT confirms a comminuted fracture of the lateral tibial plateau with approximately 4 mm of step-off along the articular surface. 2. Medial tibial spine is discontinuous concerning for tibial spine fracture although this could be chronic or incidental. 3. Moderate joint effusion. 4. Chronic changes of tricompartmental osteoarthritis.
[2024-05-26] MEDS: ondansetron 2 mg/ML SDV 2 mL 4 MG IVP (17:24)
[2024-05-26] MEDS: morphine 4 mg/mL SDV 1 mL IVP ×2 (17:24→18:21)
[2024-05-26 17:31] VITALS: BP 172/118; PULSE 85; O2SAT 100
[2024-05-26] MEDS: ketorolac 30 mg/mL INJ IVP (18:21)
[2024-05-26 19:22] VITALS: BP 157/73; PULSE 71; O2SAT 98
--- NOTE | 2024-05-26 19:23 | ED_ITS ---
HPI - Extremity Problem General: Chief complaint: Extremity Injury, Lower Stated complaint: left leg injury Time Seen by Provider: 05/26/24 17:06 History of Present Illness: This patient is a 53-year-old white female who sustained an injury to her left knee and lower leg when she was trying to christie a hog. She states she got pinned and then twisted her left knee. This occurred at 2 PM. Related Data Home Medications Medication Instructions Recorded Confirmed zinc 50 mg tablet 50 mg PO DAILY 10/05/21 04/15/24 Previous Rx's Medication Instructions Recorded docusate sodium 100 mg capsule 100 mg PO BID #60 caps 12/07/22 Saccharomyces boulardii 250 mg 250 mg PO QDAY #90 caps 05/05/23 capsule (Daily Probiotic (S. boulardii)) dicyclomine 10 mg capsule See Rx Instructions .Route 07/21/23 .COMPLEX #90 caps meloxicam 15 mg tablet 15 mg PO DAILY #30 tabs 09/21/23 escitalopram oxalate 20 mg tablet 20 mg PO DAILY #90 tabs 11/21/23 cyclobenzaprine 10 mg tablet See Rx Instructions .Route 01/14/24 .COMPLEX #30 tabs metoprolol succinate 50 mg See Rx Instructions .Route 01/22/24 tablet,extended release 24 hr .COMPLEX #180 tabs estradiol 0.01% (0.1 mg/gram) 1 g vaginal .twice weekly #42.5 02/09/24 vaginal cream (Estrace) grams pregabalin 25 mg capsule (Lyrica) 25 mg PO DAILY #30 caps 03/22/24 semaglutide 0.25 mg or 0.5 mg (2 0.25 mg (0.368 mL) SUBCUT .weekly 04/15/24 mg/3 mL) subcutaneous pen injector #3 mL (Ozempic) estradiol 0.0375 mg/24 hr See Rx Instructions .Route 04/17/24 semiweekly transdermal patch .COMPLEX #24 patches hydrocodone 5 mg-acetaminophen 325 1 tab PO Q4H PRN pain #30 tabs 05/26/24 mg tablet Allergies Allergy/AdvReac Type Severity Reaction Status Date / Time No Known Allergies Allergy Verified 05/26/24 15:10 Review of Systems General: Reports: 10 or more systems reviewed and unremarkable except in HPI and below Musc: Reports: other (Left knee pain/injury.) PFSH ED PFS: Medical History No pertinent past medical history Denies diabetes, asthma, seizures, DVT/PE PCP: Dr. Fairchild Fibromyalgia syndrome Diagnosed in 2018 managed by primary care provider Abnormal uterine bleeding 09/21/2017: TSH, CBC, Pap smear, pelvic ultrasound and endometrial biopsy have all returned normal and negative for hyperplasia or atypia---> started on Sprintec Hypertension Diagnosed in 2018. This is managed by her primary care provider and cardiology Dr. Luciano Surgical History History of hysterectomy (~12/06/22) LAVH, BSO performed by [facility] History of appendectomy (~2004) Open procedure-right lower quadrant incision History of tubal ligation (~2001) Laparoscopic procedure Family History Mother Diabetes Hypertension Thyroid disease Grandmother Ovarian cancer Maternal; diagnosed in her 50s Sister Cervical cancer dx age 15 Denies family history of Colon cancer Heart disease Hypercholesteremia Breast cancer Uterine cancer Stroke Social History Smoking and tobacco/nicotine status: unknown if used tobacco/nicotine Physical Exam Const: COMMON NORMALS: patient oriented x3 and no limitations GENERAL APPEARANCE: cooperative HENMT: COMMON NORMALS: normocephalic, atraumatic, Normal nasal mucous membranes and turbinates present, moist oral mucous membranes and oropharynx normal HEAD & SCALP: normal to inspection, normocephalic and atraumatic FACE & SINUS: normal facial exam NOSE: Normal nasal mucous membranes and turbinates present Eye: COMMON NORMALS: Equal, round and reactive pupils present, EOMs intact bilaterally and conjunctivae normal GENERAL EYE: appearance normal, both eyes and all related structures CONJUNCTIVA: Yes conjunctivae normal PUPIL: Yes Equal, round and reactive pupils present Neck/C-Spine: COMMON NORMALS: supple and no JVD Chest: COMMONS NORMALS: normal inspection of the chest Resp: COMMON NORMALS: normal respiratory effort and clear to auscultation bilaterally AUSCULTATION: clear to auscultation bilaterally Cardio: COMMON NORMALS: no JVD, regular rate, regular rhythm, No gallops prese nt (Cardio), No murmurs present (Cardio) and No rub (Cardio) RATE: regular rate RHYTHM: regular rhythm GI: COMMON NORMALS: Normal to inspection, nondistended, normoactive bowel sounds present, Soft to palpation and non-tender AUSCULTATION: Yes normoactive bowel sounds PALPATION: Yes Soft to palpation : COMMON NORMALS: Yes no CVA tenderness BLADDER/KIDNEY EXAM: Yes no CVA tenderness Back/Pelvis: COMMON NORMALS: no CVA tenderness and thoracic and lumbar spine normal to inspection Extremity: NARRATIVE EXTREMITY EXAM: Did not attempt range of motion of the left knee. She does have tenderness over the proximal tibia and some swelling over the anterior knee. Neuro: COMMON NORMALS: patient oriented x3 and CN's II-XII intact bilaterally Psych: COMMON NORMALS: mental status grossly normal, Normal thought process present and cooperative THOUGHT PROCESS: Normal thought process present Skin: COMMON NORMALS: no rashes or lesions noted, turgor normal and no jaundice GENERAL SKIN EXAM: no rashes or lesions noted and turgor normal Course Vital Signs: Vital signs: Vital Signs Temperature 97.9 F 05/26/24 15:06 Pulse Rate 71 05/26/24 19:22 Respiratory Rate 19 H 05/26/24 15:06 Blood Pressure 157/73 05/26/24 19:22 Pulse Oximetry 98 05/26/24 19:22 Oxygen Delivery Me thod Room Air 05/26/24 17:31 MDM - Extremity (Nontraumatic) Medical Decision Making X-rays of the left knee and left tibia-fibula revealed a tibial plateau fracture lateral aspect with some depression. I discussed the case with Dr. Ramírez, orthopedic surgeon on-call. He would like a CT scan and he recommended we put the patient in a knee immobilizer and provided with crutches and instructed her to not bear any weight. He will see her in clinic this week. Patient was given morphine and Toradol for her pain in the emergency department. She was discharged in stable condition with prescription for hydrocodone. Lab Data Radiology Impressions Ankle X-Ray 05/26/24 15:29 IMPRESSION: 1. Nonspecific 2 mm calcific density along the inferior aspect of the lateral malleolus. If clinical symptoms directly correlate this could represent a small avulsion fracture fragment. Alternatively this may represent an incidental chronic finding. Knee X-Ray 05/26/24 15:29 IMPRESSION: 1. Findings suggest a minimally depressed fracture through the lateral tibial plateau. 2. Changes of tricompartmental osteoarthritis and small joint effusion. Tibia/Fibula X-Ray 05/26/24 15:29 IMPRESSION: 1. Findings concerning for a nondisplaced fracture of the medial tibial plateau. 2. Changes of tricompartmental osteoarthritis at the knee. Joint effusion at the knee. 3. Incidental calcaneal plantar spur and Achilles enthesophyte. Knee CT 05/26/24 17:17 IMPRESSION: 1. CT confirms a comminuted fracture of the lateral tibial plateau with approximately 4 mm of step-off along the articular surface. 2. Medial tibial spine is discontinuous concerning for tibial spine fracture although this could be chronic or incidental. 3. Moderate joint effusion. 4. Chronic changes of tricompartmental osteoarthritis. All radiology interpretation(s) finalized by discharge Discharge Plan Discharge Patient Disposition: Home Clinical Impression: Fracture, tibial plateau Qualifiers: Encounter type: initial encounter Fracture type: closed Laterality: left Qualified Code(s): S82.142A - Displaced bicondylar fracture of left tibia, initial encounter for closed fracture Condition: Stable Prescriptions: New hydrocodone-acetaminophen 5-325 mg tablet 1 tab PO Q4H PRN (Reason: pain) Qty: 30 0RF No Action zinc 50 mg tablet 50 mg PO DAILY meloxicam 15 mg tablet 15 mg PO DAILY Qty: 30 11RF Rx Instructions: take with food estradiol [Estrace] 0.01 % (0.1 mg/gram) cream 1 g vaginal .twice weekly Qty: 42.5 3RF Ozempic 0.25 mg or 0.5 mg (2 mg/3 mL) pen injector 0.25 mg SUBCUT .weekly Qty: 3 11RF silver nitrate applicators 75-25 % stick 1 applic topical ONCE Qty: 1 0RF Daily Probiotic (S. boulardii) 250 mg capsule 250 mg PO QDAY Qty: 90 3RF dicyclomine 10 mg capsule See Rx Instructions .ROUTE .COMPLEX Qty: 90 5RF Dose Instruction: TAKE ONE CAPSULE BY MOUTH THREE TIMES DAILY NEEDED Rx Instructions: TAKE ONE CAPSULE BY MOUTH THREE TIMES DAILY NEEDED escitalopram oxalate 20 mg tablet 20 mg PO DAILY Qty: 90 3RF cyclobenzaprine 10 mg tablet See Rx Instructions .ROUTE .COMPLEX Qty: 30 8RF Dose Instruction: TAKE one half TABLET BY MOUTH DAILY NEEDED FOR muscle spasm Rx Instructions: TAKE one half TABLET BY MOUTH DAILY NEEDED FOR muscle spasm metoprolol succinate 50 mg tablet extended release 24 hr See Rx Instructions .ROUTE .COMPLEX Qty: 180 3RF Dose Instruction: TAKE ONE TABLET BY MOUTH TWICE DAILY Rx Instructions: TAKE ONE TABLET BY MOUTH TWICE DAILY pregabalin [Lyrica] 25 mg capsule 25 mg PO DAILY Qty: 30 5RF estradiol 0.0375 mg/24 hr patch semiweekly See Rx Instructions .ROUTE .COMPLEX Qty: 24 1RF Dose Instruction: apply one PATCH TO SKIN twice a WEEK Rx Instructions: apply one PATCH TO SKIN twice a WEEK docusate sodium 100 mg Capsule 100 mg PO BID Qty: 60 0RF Discharge Orders: Discharge ED (Routine); Ordered 05/26/24 Ordered By: Abdi Perez Referrals: Dominick Fairchild MD [Primary Care Provider] - Patient Instructions: Leg Fracture (ED), Opioid Safety, Pain Management Activity Restrictions/Additional Instructions: No weightbearing. Contact Dr. Ramírez's office tomorrow to schedule an appointment Coding Level of Care Code ED [employer] for Sebastian Posey
--- NOTE | 2024-05-26 19:23 | PC.NURSE ---
NORCO X4 TABLETS FOR HOME PER PROVIDER
== END 2024-05-26 19:23 | disposition home or self-care (01) ==
PROVIDERS: Emergency Provider Emergency Medicine; PCP Family Medicine
DX: S82.142A Displaced bicondylar fracture of left tibia, initial encounter for closed fracture (principal); I10 Essential (primary) hypertension; X58.XXXA Exposure to other specified factors, initial encounter
CPT/HCPCS: 29530; 73562; 73590; 73610; 73700; 96374; 96375; 96376; 99285; E0114; J1885; J2270; J2405

== ENCOUNTER → 2024-05-31 10:23 | Outpatient (BNVA) | payer OTHER, SELFPAY | PROVIDERS: PCP Family Medicine; Visit Provider Student in an Organized Health Care Education/Training Program | DX: S82.122A Displaced fracture of lateral condyle of left tibia, initial encounter for closed fracture; X50.9XXA Other and unspecified overexertion or strenuous movements or postures, initial encounter | CPT/HCPCS: 73562 ==

== ENCOUNTER 2024-06-07 11:36 | Day surgery (SDC) | payer OTHER, SELFPAY ==
[2024-06-07] VITALS (15 sets, daily range): BP systolic 147–175; BP diastolic 100–114; PULSE 73–107; RESP 10–20; TEMP 36.4–36.9; O2SAT 92–100; BMI 32.3
[2024-06-07] MEDS: scopolamine 1.5 Patch 1 PATCH TRANSDERMA (12:19)
[2024-06-07] MEDS: acetaminophen 1,000 MG/100 ML PIGGYBACK 400 MG IV (12:19)
[2024-06-07] MEDS: sodium chloride 0.9% 500 ML IV (12:19)
[2024-06-07] MEDS: ketorolac 30 mg/mL INJ IVP (12:20)
--- NOTE | 2024-06-07 12:23 | ANES.PREANE2 ---
Pre-Anesthetic Assessment Height/Weight: Height 5 ft 5 in Weight 194 lb Temp Pulse Resp BP Pulse Ox O2 Del Method 98.5 F 73 18 156/109 97 Room Air 06/07/24 11:50 06/07/24 11:50 06/07/24 11:50 06/07/24 11:50 06/07/24 11:50 06/07/24 12:05 Preop Diagnosis: Left knee lateral plateau fracture Operation Date: 06/07/24 13:00 Proposed Procedures p ORIF lateral Tibial Plateau(Left) - Rosendo Ramírez, DO Was Beta Johnnie taken within 24 hours: Yes Was Clonidine taken within 24 hours: N/A Last intake: Intake Last Liquid Date 06/06/24 Last Liquid Time 21:00 Last Solid Date 06/06/24 Last Solid Time 21:00 Social No alcohol and No tobacco Exam alert, oriented x 3, clear to auscultation bilaterally and regular rate & rhythm Airway Submandibular: within normal limits Cervical ROM: within normal limits Mallampati: Class III Dentition: full Comments: Comments: smaller mouth opening Anesthetic Plan ASA status: 3 Anesthesia: General Other: No prior issues with anesthesia NPO since yesterday History of hypertension on metoprolol. Taken yesterday. Preop BP 156/109 Prior EKG showing sinus rhythm Plan for general anesthesia with possible postoperative nerve block Medications/Allergies Home Medications Medication Instructions Recorded Confirmed Last Taken Type Saccharomyces boulardii 250 mg 250 mg PO QDAY #90 caps 05/05/23 06/07/24 05/31/24 Rx capsule (Daily Probiotic (S. boulardii)) meloxicam 15 mg tablet 15 mg PO DAILY #30 tabs 09/21/23 06/07/24 Unknown Rx escitalopram oxalate 20 mg tablet 20 mg PO DAILY #90 tabs 11/21/23 06/07/24 06/06/24 Rx pregabalin 25 mg capsule (Lyrica) 25 mg PO DAILY #30 caps 03/22/24 06/07/24 06/06/24 Rx hydrocodone 5 mg-acetaminophen 325 1 tab PO Q4H PRN pain #30 tabs 05/26/24 06/07/24 06/07/24 Rx mg tablet bisacodyl 5 mg tablet,delayed 5 mg PO DAILY PRN Constipation 06/06/24 06/07/24 06/06/24 History release (Dulcolax (bisacodyl)) cyclobenzaprine 10 mg tablet 5 mg PO DAILY 06/06/24 06/07/24 05/24/24 History dicyclomine 10 mg capsule 10 mg PO TID 06/06/24 06/07/24 Unknown History estradiol 0.0375 mg/24 hr 1 patch transdermal .SEMIWEEKLY 06/06/24 06/07/24 06/03/24 History semiweekly transdermal patch metoprolol succinate 50 mg 50 mg PO BID 06/06/24 06/07/24 06/06/24 History tablet,extended release 24 hr Allergies Allergy/AdvReac Type Severity Reaction Status Date / Time No Known Allergies Allergy Verified 05/31/24 10:32 Current Medications Generic Name Dose Route Start Last Admin Trade Name Freq PRN Reason Stop Dose Admin Sodium Chloride 500 mls @ 500 mls/hr 06/07/24 11:49 06/07/24 12:19 Sodium Chloride 0.9% IV 06/07/24 12:48 500 mls/hr ONCE ONE Administration Scopolamine 1 patch 06/07/24 11:49 06/07/24 12:19 Scopolamine 1.5 Patch TRANSDERMA 1 patch ONCE PRN Administration anesthetic related nausea PFSH Anesthesia Medical History No pertinent past medical history Denies diabetes, asthma, seizures, DVT/PE PCP: Dr. Fairchild Fibromyalgia syndrome Diagnosed in 2018 managed by primary care provider Abnormal uterine bleeding 09/21/2017: TSH, CBC, Pap smear, pelvic ultrasound and endometrial biopsy have all returned normal and negative for hyperplasia or atypia---> started on Sprintec Hypertension Diagnosed in 2018. This is managed by her primary care provider and cardiology Dr. Luciano Surgical History History of hysterectomy (~12/06/22) LAVH, BSO performed by [facility] History of appendectomy (~2004) Open procedure-right lower quadrant incision History of tubal ligation (~2001) Laparoscopic procedure Family History Mother Diabetes Hypertension Thyroid disease Grandmother Ovarian cancer Maternal; diagnosed in her 50s Sister Cervical cancer dx age 15 Denies family history of Colon cancer Heart disease Hypercholesteremia Breast cancer Uterine cancer Stroke Social History Smoking and tobacco/nicotine status: unknown if used tobacco/nicotine Data Anesthesia Cardiac Studies: No Data to Display
--- NOTE | 2024-06-07 12:30 | W.PM.OPSUD ---
Surgery/Procedure H&P Update DATE OF PROCEDURE: June 07, 2024 DATE H&P PERFORMED: 05/30/24 H&P UPDATE INFORMATION: I have reviewed H&P completed within last 30 days, I have examined patient prior to procedure and No changes to prior documentation PREOP DIAGNOSIS: Left knee lateral plateau fracture PRIMARY INDICATION FOR PROCEDURE: Left knee split/depressed lateral plateau fracture PLANNED PROCEDURE: Operation Date: 06/07/24 13:00 Proposed Procedures p ORIF lateral Tibial Plateau(Left) - Rosendo Ramírez DO
--- NOTE | 2024-06-07 12:32 | W.PM.OPSUD ---
Surgery/Procedure H&P Update DATE OF PROCEDURE: June 07, 2024 DATE H&P PERFORMED: 05/30/24 H&P UPDATE INFORMATION: I have reviewed H&P completed within last 30 days, I have examined patient prior to procedure and No changes to prior documentation PREOP DIAGNOSIS: Left knee lateral plateau fracture PRIMARY INDICATION FOR PROCEDURE: Left Knee depressed lateral tibial plateau fracture PLANNED PROCEDURE: Operation Date: 06/07/24 13:00 Proposed Procedures p ORIF lateral Tibial Plateau(Left) - Rosendo Ramírez DO
--- NOTE | 2024-06-07 12:40 | XR_ITS ---
WS: [id number] Left knee, C ARM fluoroscopy views, 06/07/2024 Clinical Data: LT TIBIAL PLATEAU FX; OR PICS Comparison: Left knee, 05/31/2024 Findings: Dr. Ramírez repaired a lateral tibial plateau fracture of the left knee with a lateral plate and screws . XR/XR knee LT 1-2V [id number] Impression: Internal fixation of lateral tibial plateau fracture of the left knee.
--- NOTE | 2024-06-07 12:55 | ANES.PREANE2 ---
Pre-Anesthetic Assessment Height/Weight: Height 5 ft 5 in Weight 194 lb Temp Pulse Resp BP Pulse Ox O2 Del Method 98.5 F 73 18 156/109 97 Room Air 06/07/24 11:50 06/07/24 11:50 06/07/24 11:50 06/07/24 11:50 06/07/24 11:50 06/07/24 12:05 Preop Diagnosis: Left knee lateral plateau fracture Operation Date: 06/07/24 13:00 Proposed Procedures p ORIF lateral Tibial Plateau(Left) - Rosendo Ramírez, DO Was Beta Johnnie taken within 24 hours: N/A Was Clonidine taken within 24 hours: N/A Last intake: Intake Last Liquid Date 06/06/24 Last Liquid Time 21:00 Last Solid Date 06/06/24 Last Solid Time 21:00 Social No alcohol and No tobacco Exam alert, oriented x 3, clear to auscultation bilaterally and regular rate & rhythm Airway Submandibular: within normal limits Cervical ROM: within normal limits Mallampati: Class III Dentition: full Anesthetic Plan ASA status: 2 Anesthesia: General Other: No prior issues with anesthesia NPO since yesterday History of hypertension on metoprolol. Taken yesterday. Preop BP 156/109 Denies any pulmonary issues Plan for general anesthesia Medications/Allergies Home Medications Medication Instructions Recorded Confirmed Last Taken Type Saccharomyces boulardii 250 mg 250 mg PO QDAY #90 caps 05/05/23 06/07/24 05/31/24 Rx capsule (Daily Probiotic (S. boulardii)) meloxicam 15 mg tablet 15 mg PO DAILY #30 tabs 09/21/23 06/07/24 Unknown Rx escitalopram oxalate 20 mg tablet 20 mg PO DAILY #90 tabs 11/21/23 06/07/24 06/06/24 Rx pregabalin 25 mg capsule (Lyrica) 25 mg PO DAILY #30 caps 03/22/24 06/07/24 06/06/24 Rx hydrocodone 5 mg-acetaminophen 325 1 tab PO Q4H PRN pain #30 tabs 05/26/24 06/07/24 06/07/24 Rx mg tablet bisacodyl 5 mg tablet,delayed 5 mg PO DAILY PRN Constipation 06/06/24 06/07/24 06/06/24 History release (Dulcolax (bisacodyl)) cyclobenzaprine 10 mg tablet 5 mg PO DAILY 06/06/24 06/07/24 05/24/24 History dicyclomine 10 mg capsule 10 mg PO TID 06/06/24 06/07/24 Unknown History estradiol 0.0375 mg/24 hr 1 patch transdermal .SEMIWEEKLY 06/06/24 06/07/24 06/03/24 History semiweekly transdermal patch metoprolol succinate 50 mg 50 mg PO BID 06/06/24 06/07/24 06/06/24 History tablet,extended release 24 hr Allergies Allergy/AdvReac Type Severity Reaction Status Date / Time No Known Allergies Allergy Verified 05/31/24 10:32 Current Medications Generic Name Dose Route Start Last Admin Trade Name Freq PRN Reason Stop Dose Admin Sodium Chloride 500 mls @ 500 mls/hr 06/07/24 11:49 06/07/24 12:19 Sodium Chloride 0.9% IV 06/07/24 12:48 500 mls/hr ONCE ONE Administration Scopolamine 1 patch 06/07/24 11:49 06/07/24 12:19 Scopolamine 1.5 Patch TRANSDERMA 1 patch ONCE PRN Administration anesthetic related nausea PFSH Anesthesia Medical History No pertinent past medical history Denies diabetes, asthma, seizures, DVT/PE PCP: Dr. Fairchild Fibromyalgia syndrome Diagnosed in 2018 managed by primary care provider Abnormal uterine bleeding 09/21/2017: TSH, CBC, Pap smear, pelvic ultrasound and endometrial biopsy have all returned normal and negative for hyperplasia or atypia---> started on Sprintec Hypertension Diagnosed in 2018. This is managed by her primary care provider and cardiology Dr. Luciano Surgical History History of hysterectomy (~12/06/22) LAVH, BSO performed by [facility] History of appendectomy (~2004) Open procedure-right lower quadrant incision History of tubal ligation (~2001) Laparoscopic procedure Family History Mother Diabetes Hypertension Thyroid disease Grandmother Ovarian cancer Maternal; diagnosed in her 50s Sister Cervical cancer dx age 15 Denies family history of Colon cancer Heart disease Hypercholesteremia Breast cancer Uterine cancer Stroke Social History Smoking and tobacco/nicotine status: unknown if used tobacco/nicotine Data Anesthesia Cardiac Studies: No Data to Display
[2024-06-07] MEDS: ceFAZolin 2,000 MG in sodium chloride 0.9% (plus) 50 ML 100 MG IV (13:01)
[2024-06-07] MEDS: tranexamic acid 1,000 mg/10mL SDV 1000 MG IV (13:25)
[2024-06-07] MEDS: ROPivacaine 0.5% SDV 30 mL 100 MG INJECTION (15:11)
[2024-06-07] MEDS: lidocaine 2% INJ 20 mL INJECTION (15:12)
--- NOTE | 2024-06-07 15:20 | W.PM.BPON ---
Date of Procedure: 06/07/2024 Surgeon: Rosendo Ramírez DO Toll Repairer Central Office(s): None Procedure(s) performed: Left knee lateral tibial plateau open reduction internal fixation Left knee lateral meniscus repair Findings of the procedure(s): Patient was found to have a peripheral tear of meniscal capsular separation on the body of the lateral meniscus I subsequently utilized suture and repaired this and tied this into our plate. Patient was found to have a split depressed lateral tibial plateau fracture fragment underwent ORIF without issues or complications. Patient tolerated procedure well without issues or complications. Estimated blood loss: 10 mL Specimen(s) removed: None Post-operative diagnosis: Left knee lateral tibial plateau split depressed fracture, left knee lateral meniscus tear
--- NOTE | 2024-06-07 15:22 | P.OP_ITS ---
Operative Report Date of procedure: June 07, 2024 Pre-op diagnosis: Left knee split depressed lateral tibial plateau fracture Post-op diagnosis: Same, lateral meniscus tear Post-op findings: See operative report narrative Procedure done: Left knee lateral tibial plateau open reduction internal fixation Left knee lateral meniscus repair Implants: Arthrex lateral left tibial plateau 2 hole plate 3. 5 cortical screws x 4 3.5 locking screws x 4 Arthrex DBM cortical fibers 5 cc graft Arthrex medium cancellous bone strip Specimens removed/disposition: None Pathology: None Surgeon: Rosendo Ramírez DO Inspector Bullet Slugs: None Anesthesia: General Estimated blood loss: 10 cc 84 minutes IV fluids: 800 mL Urine output: None Complications: None Findings: See operative report narrative Condition: stable Disposition: same day Brief History: Patient is a pleasant 54-year-old female sustained a left knee lateral tibial plateau split depressed fracture fragment. CT scan there was considerable depression and overall has minimal arthritis we talked about this in detail on my measurements this is roughly 5 mm to 6 mm of depression fracture fragment we talked about her options in detail and through shared decision making understanding the ins and outs procedure risk benefits complication alternatives with surgery through shared decision-making patient elects to proceed with surgical intervention for a left knee lateral tibial plateau open reduction internal fixation. All questions have been answered at this time. Consent was reviewed and signed with patient the preop. Procedure: Patient was seen eval in the preoperative holding area. Consent was reviewed and signed with patient. Correct extremity was subsequently marked. She had significant decrease in her swelling and a normal wrinkle sign at this point time amenable for proceeding with surgical intervention. She was then seen evaluated Anesthesia Department once cleared for surgery she was taken back to the operative suite transported on the OR table In supine position all bony prominences well-padded patient was brought to secured to bed. She underwent anesthesia per the issue department once properly anesthetized a nonsterile tourniquet was applied to the left thigh. We then placed a hip bump on the ipsilateral hip as well as bone foam. Once this was in place she then subsequently had the left lower extremity prepped and draped in standard orthopedic fashion. Final timeout performed. Patient received appropriate preoperative antibiotics. Esmarch tourniquet was used exsanguinate the left lower extremity tourniquet was insufflated to 250 mmHg. I performed a standard curvilinear incision over the lateral tibial plateau centering over Veronica's tubercle. Sharp scalpel incision was made through skin and subcutaneous tissue. I then subsequently came down directly over the fascia and IT band. I then maintained exact hemostasis with electrocautery. I then subsequently using sharp scalpel incision made and mobilized over Veronica's tubercle keeping in line with the IT band fibers care proximally was made to stay above the capsule and then subsequently carried my dissection distally and mobilized full-thickness flaps staying directly on the bone and creating a cuff of tissue off of the anterior tibial crest for later fascial repair. I mobilized utilizing a Blanco elevator the anterior compartment fibers off of the bone and then carried my dissection posteriorly identifying the fracture as well as carrying this all the way to the area of the fibular head this completed my full exposure of the lateral tibial plateau exposure. I then subsequently identified the split fracture fragment this was then subsequently open open booked in preparation for tamping. I then subsequently made a submeniscal arthrotomy and evacuated the hemarthrosis and thoroughly irrigated the joint. A small loose chondral fragment that was free-floating was excised and then subsequently I visualized the meniscus. The undersurface of the meniscus at the body had a meniscal capsular separation I then subsequently utilized Ethibond suture to repair this and did this twice and then plan was to incorporate this repair into the proximal tibial plateau plate. At this point time I had direct visualization of the depression of the fracture fragment I had direct visualization during this as well as with fluoroscopic imaging. I then subsequently utilized a tamp to tamp up the depressed fracture fragments till I was satisfied with visibly through the arthrotomy as well as on radiographic findings. Once this was tamped I then backfilled this with cancellous bone chips as well as DBM cortical fibers from Arthrex. Once I was satisfied with this I then closed the cortical split window that I utilized and then selected a Arthrex lateral tibial plateau left 2 hole plate that this would give me satisfactory placement I then subsequently placed the plate and utilized for scopic imaging to make appropriate adjustments use K wire pins to hold this into satisfactory place and then subsequently placed a cortical screw to have excellent bone to plate interface and compressed the plate to bone. I then subsequently did this additionally at the proximal fracture fragment to obtain compression proximally and close down the split fracture fragment. This compressed plate to bone confirmed to be in appropriate position all wires were then subsequently removed and then subsequently drilled and placed 3 additional variable locking screws proximally around the cortical screw these all had excellent purchase and fixation were drilled under fluoroscopic imaging confirming to be extra-articular but had good raftering and subchondral support underneath the tamped up fragment. Next I then completed my fixation distally with a oblique kickstand screw as well as lock fixation distally. These both had excellent fixation and these were drilled measured and appropriate length screws were placed I then subsequently took final x-rays which confirmed satisfactory reduction of split depressed lateral tibial plateau fracture. At this point in time I then utilized a free needle and passed the 2 Ethibond sutures into the holes of the proximal tibial plateau plate these were then subsequently tied down completing the lateral meniscus repair and closure of the capsule. This point time thorough irrigation was then subsequently performed final x-rays taken. Tourniquet deflated hemostasis satisfactory thoroughly irrigation performed and then closed in layered fashion of deep oh STRATAFIX suture as well as 0 Vicryl 2-0 Vicryl and running strata fix and Steri-Strips for the skin. This was then dressed in a bulky soft dressing with Silverlon ABDs Kerlix and an Kwasi wrap. Patient was then awakened from anesthesia and taken to PACU in stable condition Disposition: Patient will be given postoperative discharge instructions to be nonweightbearing to the left lower extremity encourage knee range of motion 0 to 90 degrees. Patient will be given crutches/walker. Follow-up in the orthopedic office in 2 weeks. Patient understands and agrees with current plan. Questions answered.
[2024-06-07] MEDS: fentaNYL 50 mcg/mL INJ 2mL IVP ×2 (15:58→17:06)
[2024-06-07] MEDS: oxyCODONE-APAP 5-325 mg Tablet 1 TAB PO (16:39)
== END 2024-06-07 17:40 | disposition home or self-care (01) ==
PROVIDERS: PCP Family Medicine; Visit Provider Student in an Organized Health Care Education/Training Program
PROC: (CPT 27403; principal; 2024-06-07 13:00)
DX: S82.142A Displaced bicondylar fracture of left tibia, initial encounter for closed fracture (principal); X50.1XXA Overexertion from prolonged static or awkward postures, initial encounter; I10 Essential (primary) hypertension
CPT/HCPCS: 27403; 27536; 73560; 76000; C1713; J0131; J0690; J1100; J1200; J1885; J2250; J2371; J2405; J2704; J2795; J3010; J7040

== ENCOUNTER → 2024-06-25 15:14 | Outpatient (BNVA) | payer OTHER, SELFPAY | PROVIDERS: PCP Family Medicine; Visit Provider Student in an Organized Health Care Education/Training Program | DX: S82.122D Displaced fracture of lateral condyle of left tibia, subsequent encounter for closed fracture with routine healing; R03.0 Elevated blood-pressure reading, without diagnosis of hypertension; X58.XXXD Exposure to other specified factors, subsequent encounter | CPT/HCPCS: 73562 ==

== ENCOUNTER → 2024-07-19 14:02 | Outpatient (BNVA) | payer OTHER, SELFPAY | PROVIDERS: PCP Family Medicine; Visit Provider Student in an Organized Health Care Education/Training Program | DX: S82.122D Displaced fracture of lateral condyle of left tibia, subsequent encounter for closed fracture with routine healing; X58.XXXD Exposure to other specified factors, subsequent encounter | CPT/HCPCS: 73562 ==

== ENCOUNTER 2024-07-24 06:30 | Outpatient (RCR) | payer OTHER, SELFPAY | END 2024-08-23 23:59 | disposition home or self-care (01) | LOC: TPT 06:30 | PROVIDERS: Visit Provider Student in an Organized Health Care Education/Training Program | DX: S82.123D Displaced fracture of lateral condyle of unspecified tibia, subsequent encounter for closed fracture with routine healing (principal); X58.XXXD Exposure to other specified factors, subsequent encounter | CPT/HCPCS: 97110; 97161 ==

== ENCOUNTER → 2024-08-20 07:54 | Outpatient (BNVA) | payer OTHER, SELFPAY | PROVIDERS: PCP Family Medicine; Visit Provider Student in an Organized Health Care Education/Training Program | DX: S82.122A Displaced fracture of lateral condyle of left tibia, initial encounter for closed fracture; R03.0 Elevated blood-pressure reading, without diagnosis of hypertension; X58.XXXA Exposure to other specified factors, initial encounter | CPT/HCPCS: 73560; 73565 ==

== ENCOUNTER 2024-08-24 06:00 | Outpatient (RCR) | payer OTHER, SELFPAY | END 2024-09-20 23:59 | disposition home or self-care (01) | LOC: TPT 06:00 | PROVIDERS: Visit Provider Student in an Organized Health Care Education/Training Program | DX: S82.123D Displaced fracture of lateral condyle of unspecified tibia, subsequent encounter for closed fracture with routine healing (principal); X58.XXXD Exposure to other specified factors, subsequent encounter | CPT/HCPCS: 97110 ==

== ENCOUNTER → 2024-09-12 15:35 | Outpatient (BNVA) | payer OTHER, SELFPAY | PROVIDERS: Visit Provider Nurse Practitioner Family | DX: R50.9 Fever, unspecified (principal) | CPT/HCPCS: 87400 ==

== ENCOUNTER 2024-09-21 06:30 | Outpatient (RCR) | payer OTHER, SELFPAY | END 2024-10-21 23:59 | disposition home or self-care (01) | LOC: TPT 06:30 | PROVIDERS: Visit Provider Student in an Organized Health Care Education/Training Program | DX: S82.123D Displaced fracture of lateral condyle of unspecified tibia, subsequent encounter for closed fracture with routine healing (principal); X58.XXXD Exposure to other specified factors, subsequent encounter | CPT/HCPCS: 97110 ==

== ENCOUNTER 2025-01-30 14:43 | Outpatient (CLI) | payer OTHER, SELFPAY ==
--- NOTE | 2025-01-30 15:00 | MM_ITS ---
WS: [id number] BILATERAL 3D TOMOSYNTHESIS DIGITAL SCREENING MAMMOGRAPHY WITH CAD CLINICAL INFORMATION: Z12.31 - Encounter for screening mammogram for malignant ... HISTORY: Screening mammogram. No current complaints. COMPARISON: 2020 TECHNIQUE: Bilateral CC and MLO views. FINDINGS: Scattered fibroglandular densities bilaterally. No suspicious focal mass, asymmetry, calcifications, or architectural distortion. No evidence of malignancy. Stable dense breast tissue upper outer LEFT breast with a few calcifications. MM/MM [facility] tomosynthesis [id number] IMPRESSION: DENSITY: There are scattered areas of fibroglandular density. BI-RADS: 2 - Benign. FOLLOW UP: 1 Year Follow-up Recommend return to annual screening mammography.
== END 2025-01-30 14:44 | disposition home or self-care (01) ==
LOC: RAD 14:44
PROVIDERS: PCP Family Medicine; Visit Provider Nurse Practitioner Women's Health
DX: Z12.31 Encounter for screening mammogram for malignant neoplasm of breast (principal); R92.323 Mammographic fibroglandular density, bilateral breasts; R92.1 Mammographic calcification found on diagnostic imaging of breast
CPT/HCPCS: 77063; 77067

== ENCOUNTER 2025-03-20 12:16 | Outpatient (CLI) | payer OTHER, SELFPAY ==
--- NOTE | 2025-03-20 12:27 | XR_ITS ---
WS: [id number] Exam: XR knee LT 3V* [id number] Date/Time of Exam: 03/20/2025 12:27 PM Reason For Exam: knee pain Comparison 08/20/2024. A healed lateral plateau fracture with lateral plate and screw fixation noted. No positional change or hardware complication noted. The medial compartment is well maintained. Mild spurring of the posterior patella. No joint effusion. Normal soft tissues. XR/XR knee LT 3V* [id number] IMPRESSION: 1. Healed lateral tibial plateau fracture with internal fixation. No positional change or hardware complication.
== END 2025-03-20 12:17 | disposition home or self-care (01) ==
PROVIDERS: PCP Family Medicine; Visit Provider Family Medicine
DX: M25.562 Pain in left knee (principal); Z87.81 Personal history of (healed) traumatic fracture; M76.892 Other specified enthesopathies of left lower limb, excluding foot
CPT/HCPCS: 73562

== ENCOUNTER 2025-05-24 05:00 | Outpatient (CLI) | payer OTHER, SELFPAY | END 2025-05-24 05:01 | disposition home or self-care (01) | LOC: SPT 06-12 17:27 | PROVIDERS: Visit Provider Student in an Organized Health Care Education/Training Program | DX: Z46.89 Encounter for fitting and adjustment of other specified devices (principal); M17.12 Unilateral primary osteoarthritis, left knee | CPT/HCPCS: L1852 ==

== ENCOUNTER → 2025-06-10 10:50 | Outpatient (BNVA) | payer OTHER, SELFPAY | PROVIDERS: PCP Family Medicine; Visit Provider Student in an Organized Health Care Education/Training Program | DX: M25.562 Pain in left knee (principal); S82.122A Displaced fracture of lateral condyle of left tibia, initial encounter for closed fracture; X58.XXXA Exposure to other specified factors, initial encounter; M17.12 Unilateral primary osteoarthritis, left knee | CPT/HCPCS: 73560; 73565 ==